=== PATIENT | female | born 2000 | race Caucasian/White ===

== ENCOUNTER 2020-04-19 13:31 | Emergency (ER) | payer OTHER | END 2020-04-19 18:08 | disposition home or self-care (01) | LOC: ER1 13:31 | DX: O99.891 Other specified diseases and conditions complicating pregnancy (principal); J02.9 Acute pharyngitis, unspecified; Z3A.33 33 weeks gestation of pregnancy; Z20.828 Contact with and (suspected) exposure to other viral communicable diseases | CPT/HCPCS: 87081; 87880; 99283; U0003 ==